=== PATIENT | male | born 1975 | race Caucasian/White ===

== ENCOUNTER 2018-11-18 09:35 | Emergency (ER) | payer MEDICAID ==
[~2018-11-18] VITALS: Ht 170.2 cm; Wt 91.0 kg
[2018-11-18] MEDS ORDERED: SODIUM CHLORIDE 0.9% 1,000 ML IV ONE (09:56)
[2018-11-18] MEDS ORDERED: KETOROLAC 30MG/ML VIAL IV STA (09:56)
[2018-11-18] MEDS ORDERED: ACETAMINOPHEN 325MG TABLET PO STA (09:56)
[2018-11-18] MEDS ORDERED: CEPHALEXIN 250MG CAPSULE PO ONE (10:00)
[2018-11-18] MEDS ORDERED: SULFAMETHOXAZOLE/TRIMETHOPRIM 800/160MG TABLET PO ONE (10:00)
[2018-11-18 10:21] LABS: BASOPHILS % 0.6 % (0.0-2.0); EOSINOPHILS % 0.4 % (0.0-5.0); HEMATOCRIT. 38.7 % (42.0-52.0); HEMOGLOBIN. 13.3 g/dL (14.0-18.0); LYMPHOCYTES % 8.1 % (20.0-50.0); MEAN CORPUSCULAR HEMOGLOBIN 29.5 pg (28.0-32.0); MEAN CORPUSCULAR VOLUME 85.5 fL (80.0-94.0); MEAN PLATELET VOLUME 9.2 fl (7.4-10.4); MONOCYTES % 6.4 % (2.0-8.0); NEUTROPHILS % 84.5 % (40.0-76.0); PLATELET 202 x1000/uL (130-400); RED BLOOD CELL COUNT 4.53 mill/uL (4.7-6.1); RED CELL DISTRIBUTION WIDTH 13.8 % (11.6-14.6)
[2018-11-18 10:35] LABS: CHLORIDE 104 mEq/L (98-107)
[2018-11-18 12:55] VITALS: BP 150/81
== END 2018-11-18 13:05 | disposition home or self-care (01) ==
LOC: ER 09:35
DX: S80.861A Insect bite (nonvenomous), right lower leg, initial encounter (principal); L03.115 Cellulitis of right lower limb; W57.XXXA Bitten or stung by nonvenomous insect and other nonvenomous arthropods, initial encounter; Y93.89 Activity, other specified; Y92.89 Other specified places as the place of occurrence of the external cause; R03.0 Elevated blood-pressure reading, without diagnosis of hypertension
CPT/HCPCS: 36415; 80053; 85025; 96374; 99283; J1885; J7030